=== PATIENT | female | born 1950 | race Two or more races ===

== ENCOUNTER 2018-10-19 11:12 | Outpatient (CLI) | payer OTHER ==
[~2018-10-19 11:12] MED LIST: DILANTIN100 MG; PHENOBARBITAL30 MG; VASOTEC20 MG
== END 2018-10-19 11:30 | disposition home or self-care (01) ==
LOC: MAMO-SONO 11:12
DX: Z12.31 Encounter for screening mammogram for malignant neoplasm of breast (principal); Z87.898 Personal history of other specified conditions; N64.59 Other signs and symptoms in breast; R07.89 Other chest pain

== ENCOUNTER → 2018-12-17 | Outpatient (CLI) | payer OTHER | END | disposition home or self-care (01) | LOC: NUCLEAR 10:00 | DX: M85.9 Disorder of bone density and structure, unspecified (principal); M81.0 Age-related osteoporosis without current pathological fracture ==

== ENCOUNTER 2019-07-02 09:51 | Outpatient (CLI) | payer OTHER ==
[~2019-07-02] VITALS: Ht 152.4 cm; Wt 61.7 kg
== END 2019-07-02 14:43 | disposition home or self-care (01) ==
LOC: OFIC 805 09:51
DX: J34.2 Deviated nasal septum (principal); H61.23 Impacted cerumen, bilateral; J31.0 Chronic rhinitis

== ENCOUNTER 2019-08-02 10:01 | Outpatient (CLI) | payer OTHER | END 2019-08-02 15:17 | disposition home or self-care (01) | LOC: RAD 10:01 | DX: M17.0 Bilateral primary osteoarthritis of knee (principal); M19.041 Primary osteoarthritis, right hand; M19.042 Primary osteoarthritis, left hand ==

== ENCOUNTER 2020-03-24 11:25 | Outpatient (CLI) | payer OTHER | END 2020-03-24 11:30 | disposition home or self-care (01) | LOC: RAD 11:25 | PROVIDERS: ATTEND Internal Medicine Cardiovascular Disease | DX: I10 Essential (primary) hypertension (principal) ==

== ENCOUNTER 2020-03-29 10:15 | Outpatient (CLI) | payer OTHER | END 2020-03-29 10:21 | disposition home or self-care (01) | LOC: RAD 10:15 | DX: S20.211A Contusion of right front wall of thorax, initial encounter (principal) ==

== ENCOUNTER 2020-10-18 10:30 | Outpatient (CLI) | payer OTHER | END 2020-10-18 10:51 | disposition home or self-care (01) | LOC: MAMO-SONO 10:30 | DX: Z12.31 Encounter for screening mammogram for malignant neoplasm of breast (principal); N64.59 Other signs and symptoms in breast ==

== ENCOUNTER 2021-03-02 08:00 | Outpatient (CLI) | payer OTHER | END 2021-03-02 08:30 | disposition home or self-care (01) | LOC: PPH VACUNA 08:00 | DX: Z23 Encounter for immunization (principal) ==

== ENCOUNTER 2021-03-23 08:00 | Outpatient (CLI) | payer OTHER | END 2021-03-23 08:30 | disposition home or self-care (01) | LOC: PPH VACUNA 08:00 | DX: Z23 Encounter for immunization (principal) ==

== ENCOUNTER 2021-05-25 10:54 | Outpatient (CLI) | payer OTHER | END 2021-05-25 11:02 | disposition home or self-care (01) | LOC: RAD 10:54 | PROVIDERS: ATTEND Specialist | DX: M16.0 Bilateral primary osteoarthritis of hip (principal); M17.0 Bilateral primary osteoarthritis of knee ==

== ENCOUNTER 2021-06-12 12:32 | Outpatient (CLI) | payer OTHER | END 2021-06-12 12:40 | disposition home or self-care (01) | LOC: NUCLEAR 12:32 | DX: M81.0 Age-related osteoporosis without current pathological fracture (principal) ==

== ENCOUNTER 2021-09-25 02:00 | Outpatient (CLI) | payer OTHER | END 2021-09-25 02:30 | disposition home or self-care (01) | LOC: PPH VACUNA 02:00 | PROVIDERS: ATTEND Emergency Medicine Pediatric Emergency Medicine | DX: Z23 Encounter for immunization (principal) ==

== ENCOUNTER 2021-12-13 10:25 | Outpatient (CLI) | payer OTHER | END 2021-12-13 10:30 | disposition home or self-care (01) | LOC: RAD 10:25 | PROVIDERS: ATTEND Urology | DX: R31.0 Gross hematuria (principal) ==